=== PATIENT | female | born 1995 | race African-American/Black ===

== ENCOUNTER 2023-06-10 12:22 | Emergency (ER) | payer MEDICAID ==
[~2023-06-10] VITALS: Ht 185.4 cm; Wt 116.0 kg
[2023-06-10 12:26] VITALS: O2SAT 100
[2023-06-10 12:52] LABS: BASOPHILS % 0.8 % (0.0-2.0); EOSINOPHILS % 1.9 % (0.0-5.0); HEMATOCRIT. 44.8 % (36.0-48.0); HEMOGLOBIN. 15.3 g/dL (12.0-16.0); LYMPHOCYTES % 21.7 % (20.0-50.0); MEAN CORPUSCULAR HEMOGLOBIN 33.3 pg (28.0-32.0); MEAN CORPUSCULAR HGB CONC 34.2 g/dL (31.0-37.0); MEAN CORPUSCULAR VOLUME 97.6 fL (81.0-99.0); MEAN PLATELET VOLUME 11.3 fl (7.4-10.4); MONOCYTES % 7.5 % (2.0-8.0); NEUTROPHILS % 68.1 % (40.0-76.0); PLATELET 208 x1000/uL (130-400); RED BLOOD CELL COUNT 4.59 mill/uL (4.2-5.4); RED CELL DISTRIBUTION WIDTH 13.8 % (11.6-14.6); WHITE BLOOD COUNT 9.9 x1000/uL (4.5-11.0)
[2023-06-10 12:58] LABS: CLARITY URINE CLOUDY (CLEAR); COLOR URINE DARK YELLOW (YELLOW); GLUCOSE URINE NEGATIVE (NEGATIVE); KETONES URINE NEGATIVE (NEGATIVE); LEUKOCYTE ESTERASE URINE 3+ (NEGATIVE); NITRITE URINE NEGATIVE (NEGATIVE); OCCULT BLOOD URINE NEGATIVE (NEGATIVE); PH URINE 7.5 (4.5-8.0); PROTEIN URINE TRACE (NEGATIVE); SPECIFIC GRAVITY URINE 1.021 (1.005-1.030)
[2023-06-10 13:00] LABS: CHLORIDE 107 mEq/L (98-107); INDEX HEMOLYSI 1 (1-3); INDEX ICTERIC 1 (1-4); INDEX LIPEMIC 1 (1-3); POTASSIUM 4.1 mEq/L (3.5-5.1); SODIUM 139 mEq/L (136-145)
[2023-06-10 13:11] LABS: SQUAMOUS EPITHELIAL CELL URINE 3+ /lpf (RARE/1+)
[2023-06-10 13:11] LABS: ALANINE AMINOTRANSFERASE 51 IU/L (13-61); ALBUMIN 4.1 g/dL (3.4-5.0); ASPARTATE AMINOTRANSFERASE 26 IU/L (15-37); BILIRUBIN TOTAL 0.4 mg/dL (0.1-1.0); CALCIUM 9.6 mg/dL (8.5-10.1); CARBON DIOXIDE 29 mEq/L (21-32); CREATININE 0.7 mg/dL (0.6-1.3); GLUCOSE 90 mg/dL (70-105); PROTEIN TOTAL 8.5 g/dL (6.0-8.3); UREA NITROGEN BLOOD 8 mg/dL (7-21)
[2023-06-10 13:12] LABS: MUCUS URINE 2+ /lpf (< = 2+)
[2023-06-10 13:15] LABS: BACTERIA URINE 3+; RBC URINE 0-2 /hpf (0-2)
[2023-06-10 13:16] LABS: HCG SCREEN NEGATIVE
[2023-06-10] MEDS ORDERED: KETOROLAC 15MG/ML VIAL IV ONE (17:00)
[2023-06-10] MEDS ORDERED: KETO10TA2 MT (19:47)
[2023-06-10] MEDS ORDERED: CEFP100T8 MT (19:47)
[2023-06-10 19:51] VITALS: BP 116/80; PULSE 64; RESP 20; TEMP 98.5
[2023-06-10] MEDS ORDERED: IOHEXOL-300 100 ML BOTTLE ONE (23:19)
== END 2023-06-10 19:57 | disposition home or self-care (01) ==
LOC: ER 12:22
DX: N39.0 Urinary tract infection, site not specified (principal); D25.9 Leiomyoma of uterus, unspecified; R10.11 Right upper quadrant pain; R10.12 Left upper quadrant pain; F10.229 Alcohol dependence with intoxication, unspecified; M54.50 Low back pain, unspecified; Y90.0 Blood alcohol level of less than 20 mg/100 ml
CPT/HCPCS: 80053; 81003; 81025; 84703; 85025; 87086; 36415; 74177; 76830; 76856; 96374; 99285; Q9967; J1885; Z7610 ×4